=== PATIENT | male | born 1995 | race Two or more races ===

== ENCOUNTER → 2020-03-21 | Emergency (ER) | payer OTHER, BC ==
[~2020-03-21] VITALS: Ht 175.3 cm; Wt 90.3 kg
[2020-03-21 21:01] VITALS: BP 129/86
== END | disposition home or self-care (01) ==
LOC: ER 17:59
DX: M54.5 Low back pain (principal); V49.9XXA Car occupant (driver) (passenger) injured in unspecified traffic accident, initial encounter; Y93.89 Activity, other specified; Y92.89 Other specified places as the place of occurrence of the external cause; Y99.8 Other external cause status
CPT/HCPCS: 72100